=== PATIENT | female | born 1935 | race Caucasian/White ===

== ENCOUNTER 2023-01-22 13:00 | Outpatient (RCR) | payer MEDICARE, OTHER, SELFPAY | END 2023-01-22 14:14 | disposition home or self-care (01) | PROVIDERS: PCP Family Medicine; Visit Provider Family Medicine | DX: M25.561 Pain in right knee (principal); M25.562 Pain in left knee; R26.81 Unsteadiness on feet; M62.81 Muscle weakness (generalized); Z74.09 Other reduced mobility; Z51.89 Encounter for other specified aftercare | CPT/HCPCS: 97110; 97161 ==

== ENCOUNTER 2023-08-09 12:15 | Outpatient (CLI) | payer MEDICARE, OTHER, SELFPAY | END 2023-08-09 12:16 | disposition home or self-care (01) | LOC: WOUND 12:17 | PROVIDERS: PCP Family Medicine; Visit Provider Nurse Practitioner Family | DX: C44.319 Basal cell carcinoma of skin of other parts of face (principal) | CPT/HCPCS: 11042; G0463 ==

== ENCOUNTER 2023-10-15 14:00 | Outpatient (RCR) | payer MEDICARE, OTHER, SELFPAY ==
--- NOTE | 2023-05-09 11:25 | ONC.NURNOTE ---
Addendum entered by Fabiola Siddiqui RN 05/15/23 12:10: [facility] transferred RX for Erivedge to [facility]- due to insurance preferences Original Note: New RX faxed to [facility] Erivedge/visomodegib supporting documentation included patient was called with this information
--- NOTE | 2023-05-09 13:20 | ONC.NURNOTE ---
Patient called office this morning checking with PET scheduling. Talking with clinic nurse, she was unable to get patient in until 06/02/2023, so order was sent to [place]. There was discussion between patient and [place], and this was cancelled. Patient said she was able to change her appointments and would like the appointment for 05/23/2023 in [place] back if possible. She also notes that she is unable to go anywhere outside of [place] or [place] for this scan. [employer]writer was able to get ahold of [place]. Radiology notes that she is on the [facility] schedule for 05/15/2023. This was moved to 05/23/2023 at 0815 in [place] per writers discussion with patient this morning. LMOM for patient with this infomration and information about diet restrictions were sent to patient via mail.
--- NOTE | 2023-05-16 11:36 | ONC.NURNOTE ---
Landon COSTELLO approval through 05/13/24 Copay $38 [facility] ph [phone] fax [phone]
--- NOTE | 2023-05-16 11:48 | ONC.NURNOTE ---
The following information was called to [place] [facility] and copay appt dates 05/29/23- -will get baseline lab first 1015 -then see Dr Culp and review PET results 1100 (VV) -then teaching on Erivedge with this publications writer 1130 publications writer will also email this information to patient-[place] offered her husbands email address at [email or web address] [place] was instructed to have her drug shipped to her at this time
[2023-05-29 10:24] LABS: Basophils Absolute Auto 0.04 K/uL (0.00-0.30); Basophils Percent Auto 0.8 % (0.0-3.0); Eosinophils Absolute Auto 0.19 K/uL (0.00-0.50); Eosinophils Percent Auto 3.8 % (0.0-7.0); Hematocrit 39.2 % (33.0-51.0); Lymphocytes Percent Auto 31.7 % (20-44); Mean Corpuscular HGB Conc 31 gm/dL (32-36); Mean Corpuscular Hemoglobin 27 pg (26-34); Mean Corpuscular Volume 89 fL (80-100); Monocytes Percent Auto 6.7 % (0.0-11.0); Neutrophils Absolute Auto 2.88 K/uL (1.7-7.0); Platelet Count* 281 K/uL (140-440); RDW Coefficient of Variation % 14.1 % (11.5-15.5); Red Blood Count 4.42 m/uL (4.00-5.20); White Blood Count* 5.05 K/uL (4.50-11.00)
[2023-05-29 10:38] LABS: Slide Review Reflex No
[2023-05-29 10:42] LABS: Albumin* 4.3 g/dL (3.3-5.0); Chloride* 101 mmol/L (96-114)
[2023-05-29 10:43] LABS: Potassium* 4.3 mmol/L (3.6-5.1); Sodium* 140 mmol/L (135-149)
[2023-05-29 10:45] LABS: Anion Gap 9 mEq/L (7-15); Bilirubin Total* 0.9 mg/dL (0.1-1.5); Carbon Dioxide* 30 mmol/L (20-32); Creatinine* 0.6 mg/dL (0.5-1.5); Est. Creatinine Clearance* 31.35; Estimated Glomerular Filt Rate 87 ml/min; Total Protein* 7.3 g/dL (6.0-8.3)
[2023-05-29 10:46] LABS: Alanine Aminotransferase* 28 U/L (4-35); Alkaline Phosphatase* 91 U/L (40-150); Aspartate Amino Transferase* 37 U/L (12-35); Blood Urea Nitrogen* 15 mg/dL (7-30); Calcium* 8.3 mg/dL (8.4-10.6); Creatine Kinase* 87 U/L (41-117); Glucose* 159 mg/dL (60-115); Lactate Dehydrogenase* 200 U/L (120-246)
--- NOTE | 2023-05-30 13:27 | ONC.NURNOTE ---
PSDS=1 no social service consult indicated physical concerns memory and dry itchy skin
--- NOTE | 2023-05-30 13:49 | ONC.NURNOTE ---
Teaching on Eviridge with son, patient and spouse reviewed possible side effects-calling with problems- ER if fever over 100.5- reviewed content of the patient treatment binder encouraged to keep a record of loose stools and other symptoms
--- NOTE | 2023-05-30 13:55 | ONC.NURNOTE ---
New start Eviridge follow up call on medication tolerance LM on voice mail to call back
--- NOTE | 2023-06-01 09:04 | ONC.NURNOTE ---
Addendum entered by Alpa Thomas RN 06/01/23 15:23: Pt called back saying she is feeling well and has no concerns at this time. Original Note: Attempted to contact patient to see how she is tolerating her new medication, Vismodegib. LM for patient to call clinic and let us know at her convenience today.
--- NOTE | 2023-06-04 15:22 | ONC.NURNOTE ---
lab orders faxed to [facility] lab for 06/12/23 insurance underwriter sales called and confirmed that orders were received pt has appt for 06/12
--- NOTE | 2023-06-07 14:12 | ONC.NURNOTE ---
Erivedge tolerance follow up: [place] reports increase frequency in stools, but no loose stools- all formed she has ongoing muscle cramps at baseline and has not noted any change- she has exercises from PT for muscle cramps that is helpful not sure that she is anymore fatigued- sleeps 10-12 hrs/night appetite is unchanged denies any questions or concerns regarding her medication lab due next week at [facility]- orders have been faxed over [facility] in 2 weeks for follow up
--- NOTE | 2023-06-15 13:00 | ONC.NURNOTE ---
lab results reviewed and called to [place] as stable medication tolerance as follows experiencing some dry heaves when she over eats- she had this prior to starting erivedge- but thinks it is a little worse taking 7 up with relief reports intermittant constipation and leg aches which she has been managing for many years Alexandria has a history or reflux and is currently taking omeprazole [place] can not determine that any of these issues are new or they could be slightly more aggravated since starting Erivedge
--- NOTE | 2023-07-17 12:39 | ONC.NURNOTE ---
patient was phoned and informed that she is due to additional lab this past week orders faxed to [facility]- patient will call to set up lab appt for
--- NOTE | 2023-07-17 12:41 | ONC.NURNOTE ---
Landon tolerance check in- reports frequent episodes of LE muscle cramping- more than her baseline- 10-12 times/day 2 nights ago [place] reported that she took Tylenol at HS for a headache and has not had a single muscle cramp since taking the Tylenol dose
[2023-08-01 10:33] LABS: Hematocrit 37.3 % (33.0-51.0); Hemoglobin* 11.5 gm/dL (12.0-16.0); Lymphocytes Percent Auto 35.5 % (20-44); Mean Corpuscular HGB Conc 31 gm/dL (32-36); Mean Corpuscular Hemoglobin 26 pg (26-34); Mean Corpuscular Volume 86 fL (80-100); Neutrophils Percent Auto 53.3 % (42.0-72.0); Platelet Count* 237 K/uL (140-440); RDW Coefficient of Variation % 14.5 % (11.5-15.5); Red Blood Count 4.35 m/uL (4.00-5.20)
[2023-08-01 10:34] LABS: Basophils Absolute Auto 0.04 K/uL (0.00-0.30); Basophils Percent Auto 0.8 % (0.0-3.0); Eosinophils Absolute Auto 0.16 K/uL (0.00-0.50); Immature Granulocytes Abs Auto 0.01 K/uL (0.00-0.30); Immature Granulocytes Pct Auto 0.2 %; Lymphocytes Absolute Auto 1.88 K/uL (0.90-2.90); Monocytes Percent Auto 7.2 % (0.0-11.0); Neutrophils Absolute Auto 2.83 K/uL (1.7-7.0)
[2023-08-01 10:35] LABS: Slide Review Reflex No
[2023-08-01 10:44] LABS: Albumin* 4.5 g/dL (3.3-5.0); Chloride* 101 mmol/L (96-114); Sodium* 140 mmol/L (135-149)
[2023-08-01 10:45] LABS: Potassium* 4.2 mmol/L (3.6-5.1)
[2023-08-01 10:47] LABS: Alkaline Phosphatase* 85 U/L (40-150); Anion Gap 7 mEq/L (7-15); Aspartate Amino Transferase* 37 U/L (12-35); Bilirubin Total* 0.7 mg/dL (0.1-1.5); Blood Urea Nitrogen* 21 mg/dL (7-30); Carbon Dioxide* 32 mmol/L (20-32); Creatine Kinase* 120 U/L (41-117); Creatinine* 0.7 mg/dL (0.5-1.5); Est. Creatinine Clearance* 31.35; Estimated Glomerular Filt Rate 84 ml/min; Glucose* 142 mg/dL (60-115); Total Protein* 7.7 g/dL (6.0-8.3)
[2023-08-01 10:48] LABS: Alanine Aminotransferase* 28 U/L (4-35); Calcium* 9.3 mg/dL (8.4-10.6)
[2023-08-08 10:20] LABS: Basophils Absolute Auto 0.04 K/uL (0.00-0.30); Basophils Percent Auto 0.8 % (0.0-3.0); Eosinophils Absolute Auto 0.15 K/uL (0.00-0.50); Eosinophils Percent Auto 2.9 % (0.0-7.0); Hematocrit 37.2 % (33.0-51.0); Hemoglobin* 11.3 gm/dL (12.0-16.0); Lymphocytes Absolute Auto 1.59 K/uL (0.90-2.90); Lymphocytes Percent Auto 31.2 % (20-44); Mean Corpuscular HGB Conc 30 gm/dL (32-36); Mean Corpuscular Hemoglobin 26 pg (26-34); Mean Corpuscular Volume 86 fL (80-100); Monocytes Percent Auto 5.7 % (0.0-11.0); Neutrophils Absolute Auto 3.03 K/uL (1.7-7.0); Neutrophils Percent Auto 59.4 % (42.0-72.0); Platelet Count* 249 K/uL (140-440); RDW Coefficient of Variation % 14.9 % (11.5-15.5); Red Blood Count 4.31 m/uL (4.00-5.20)
[2023-08-08 10:22] LABS: Slide Review Reflex No
[2023-08-08 11:10] LABS: Creatine Kinase* 264 U/L (41-117)
--- NOTE | 2023-08-08 14:29 | ONC.NURNOTE ---
CPK results reviewed by Dr Culp- and called to [place] per Dr Culp- continue to hold Erivedge for another week and recheck CPK next week patient called, states understanding and appts made
[2023-08-15 10:38] LABS: Creatine Kinase* 132 U/L (41-117)
--- NOTE | 2023-08-15 15:47 | ONC.NURNOTE ---
CPK results noted by Dr Culp- orders received [place] called with dose change- resume Erivedge every other day with lab repeat in 1 week patient states understanding and appts made for lab
[2023-08-22 11:04] LABS: Creatine Kinase* 110 U/L (41-117)
--- NOTE | 2023-08-22 11:22 | ONC.NURNOTE ---
Patient reports doing well on QOD dosing of Eviridge muscle cramping has decreased from frequent occurrences throughout the day- to infrequent- not even daily due for Oncology follow up next week with all lab due
[2023-08-29 09:02] LABS: Basophils Absolute Auto 0.03 K/uL (0.00-0.30); Basophils Percent Auto 0.5 % (0.0-3.0); Eosinophils Percent Auto 3.7 % (0.0-7.0); Hemoglobin* 11.1 gm/dL (12.0-16.0); Lymphocytes Absolute Auto 1.66 K/uL (0.90-2.90); Lymphocytes Percent Auto 30.3 % (20-44); Mean Corpuscular HGB Conc 31 gm/dL (32-36); Mean Corpuscular Hemoglobin 26 pg (26-34); Mean Corpuscular Volume 86 fL (80-100); Monocytes Percent Auto 5.5 % (0.0-11.0); Neutrophils Absolute Auto 3.28 K/uL (1.7-7.0); Platelet Count* 258 K/uL (140-440); RDW Coefficient of Variation % 15.1 % (11.5-15.5); White Blood Count* 5.47 K/uL (4.50-11.00)
[2023-08-29 09:04] LABS: Slide Review Reflex No
[2023-08-29 09:20] LABS: Albumin* 4.2 g/dL (3.3-5.0); Chloride* 101 mmol/L (96-114); Potassium* 3.9 mmol/L (3.6-5.1); Sodium* 138 mmol/L (135-149)
[2023-08-29 09:22] LABS: Creatinine* 0.7 mg/dL (0.5-1.5); Est. Creatinine Clearance* 31.35; Estimated Glomerular Filt Rate 84 ml/min
[2023-08-29 09:23] LABS: Alanine Aminotransferase* 20 U/L (4-35); Alkaline Phosphatase* 80 U/L (40-150); Anion Gap 7 mEq/L (7-15); Aspartate Amino Transferase* 32 U/L (12-35); Bilirubin Total* 0.8 mg/dL (0.1-1.5); Blood Urea Nitrogen* 15 mg/dL (7-30); Calcium* 9.2 mg/dL (8.4-10.6); Carbon Dioxide* 30 mmol/L (20-32); Glucose* 196 mg/dL (60-115); Total Protein* 7.3 g/dL (6.0-8.3)
[2023-10-03 10:12] LABS: Basophils Absolute Auto 0.04 K/uL (0.00-0.30); Basophils Percent Auto 0.8 % (0.0-3.0); Eosinophils Percent Auto 3.8 % (0.0-7.0); Hematocrit 37.5 % (33.0-51.0); Hemoglobin* 11.4 gm/dL (12.0-16.0); Lymphocytes Absolute Auto 1.69 K/uL (0.90-2.90); Lymphocytes Percent Auto 31.9 % (20-44); Mean Corpuscular HGB Conc 30 gm/dL (32-36); Mean Corpuscular Hemoglobin 26 pg (26-34); Mean Corpuscular Volume 85 fL (80-100); Monocytes Percent Auto 5.5 % (0.0-11.0); Neutrophils Absolute Auto 3.07 K/uL (1.7-7.0); Platelet Count* 244 K/uL (140-440); RDW Coefficient of Variation % 15.5 % (11.5-15.5); Red Blood Count 4.42 m/uL (4.00-5.20); White Blood Count* 5.29 K/uL (4.50-11.00)
[2023-10-03 10:32] LABS: Slide Review Reflex No
[2023-10-03 10:34] LABS: Albumin* 4.2 g/dL (3.3-5.0); Chloride* 103 mmol/L (96-114); Sodium* 137 mmol/L (135-149)
[2023-10-03 10:35] LABS: Potassium* 3.9 mmol/L (3.6-5.1)
[2023-10-03 10:37] LABS: Alkaline Phosphatase* 81 U/L (40-150); Anion Gap 6 mEq/L (7-15); Aspartate Amino Transferase* 28 U/L (12-35); Bilirubin Total* 0.5 mg/dL (0.1-1.5); Blood Urea Nitrogen* 18 mg/dL (7-30); Carbon Dioxide* 28 mmol/L (20-32); Creatine Kinase* 109 U/L (41-117); Creatinine* 0.7 mg/dL (0.5-1.5); Est. Creatinine Clearance* 31.35; Estimated Glomerular Filt Rate 84 ml/min; Glucose* 187 mg/dL (60-115); Total Protein* 7.3 g/dL (6.0-8.3)
[2023-10-03 10:38] LABS: Alanine Aminotransferase* 20 U/L (4-35); Calcium* 8.6 mg/dL (8.4-10.6)
--- NOTE | 2023-10-04 13:10 | ONC.NURNOTE ---
Lab results stable including CPK, reviewed by Dr Culp and called to [place] reports no concerns with current treatment PET next week with follow up following
== END 2023-11-03 23:59 | disposition home or self-care (01) ==
LOC: CCIC 14:00
PROVIDERS: PCP Family Medicine; Referring Provider Family Medicine; Visit Provider Internal Medicine Hematology & Oncology
DX: C44.319 Basal cell carcinoma of skin of other parts of face (principal)
CPT/HCPCS: 36415; 80053; 82550; 83615; 85025; 99202; 99205; 99212; 99213; 99214; 99215; G0463

== ENCOUNTER 2024-05-21 10:30 | Outpatient (RCR) | payer MEDICARE, OTHER, SELFPAY ==
[2023-11-26 10:36] LABS: Basophils Absolute Auto 0.04 K/uL (0.00-0.30); Basophils Percent Auto 0.9 % (0.0-3.0); Eosinophils Absolute Auto 0.17 K/uL (0.00-0.50); Eosinophils Percent Auto 3.8 % (0.0-7.0); Hematocrit 35.1 % (33.0-51.0); Hemoglobin* 10.9 gm/dL (12.0-16.0); Lymphocytes Absolute Auto 1.36 K/uL (0.90-2.90); Lymphocytes Percent Auto 30.2 % (20-44); Mean Corpuscular HGB Conc 31 gm/dL (32-36); Mean Corpuscular Hemoglobin 26 pg (26-34); Mean Corpuscular Volume 84 fL (80-100); Monocytes Percent Auto 6.9 % (0.0-11.0); Neutrophils Absolute Auto 2.62 K/uL (1.7-7.0); Neutrophils Percent Auto 58.2 % (42.0-72.0); Platelet Count* 246 K/uL (140-440); RDW Coefficient of Variation % 15.4 % (11.5-15.5); Red Blood Count 4.16 m/uL (4.00-5.20)
[2023-11-26 10:54] LABS: Albumin* 4.3 g/dL (3.3-5.0)
[2023-11-26 10:55] LABS: Chloride* 105 mmol/L (96-114); Potassium* 3.8 mmol/L (3.6-5.1); Sodium* 139 mmol/L (135-149)
[2023-11-26 10:57] LABS: Bilirubin Total* 0.7 mg/dL (0.1-1.5); Creatinine* 0.7 mg/dL (0.5-1.5); Estimated Glomerular Filt Rate 84 ml/min
[2023-11-26 10:58] LABS: Alanine Aminotransferase* 23 U/L (4-35); Alkaline Phosphatase* 72 U/L (40-150); Anion Gap 8 mEq/L (7-15); Aspartate Amino Transferase* 37 U/L (12-35); Blood Urea Nitrogen* 18 mg/dL (7-30); Calcium* 8.4 mg/dL (8.4-10.6); Carbon Dioxide* 26 mmol/L (20-32); Glucose* 156 mg/dL (60-115); Total Protein* 7.3 g/dL (6.0-8.3)
[2023-11-26 11:11] LABS: Slide Review Reflex No
[2023-11-26 12:18] LABS: Creatine Kinase* 133 U/L (41-117)
[2023-12-11 10:12] LABS: Basophils Absolute Auto 0.03 K/uL (0.00-0.30); Basophils Percent Auto 0.7 % (0.0-3.0); Eosinophils Absolute Auto 0.16 K/uL (0.00-0.50); Eosinophils Percent Auto 3.5 % (0.0-7.0); Hematocrit 35.8 % (33.0-51.0); Lymphocytes Absolute Auto 1.55 K/uL (0.90-2.90); Lymphocytes Percent Auto 33.6 % (20-44); Mean Corpuscular HGB Conc 31 gm/dL (32-36); Mean Corpuscular Hemoglobin 26 pg (26-34); Mean Corpuscular Volume 84 fL (80-100); Monocytes Percent Auto 7.2 % (0.0-11.0); Neutrophils Absolute Auto 2.54 K/uL (1.7-7.0); Platelet Count* 247 K/uL (140-440); RDW Coefficient of Variation % 15.4 % (11.5-15.5); Red Blood Count 4.27 m/uL (4.00-5.20); White Blood Count* 4.61 K/uL (4.50-11.00)
[2023-12-11 10:14] LABS: Slide Review Reflex No
[2023-12-11 10:35] LABS: Albumin* 4.3 g/dL (3.3-5.0)
[2023-12-11 10:36] LABS: Chloride* 104 mmol/L (96-114); Potassium* 4.4 mmol/L (3.6-5.1); Sodium* 139 mmol/L (135-149)
[2023-12-11 10:38] LABS: Anion Gap 5 mEq/L (7-15); Aspartate Amino Transferase* 34 U/L (12-35); Bilirubin Total* 0.9 mg/dL (0.1-1.5); Carbon Dioxide* 30 mmol/L (20-32); Creatinine* 0.7 mg/dL (0.5-1.5); Estimated Glomerular Filt Rate 84 ml/min; Total Protein* 7.4 g/dL (6.0-8.3)
[2023-12-11 10:39] LABS: Alanine Aminotransferase* 23 U/L (4-35); Alkaline Phosphatase* 77 U/L (40-150); Blood Urea Nitrogen* 19 mg/dL (7-30); Calcium* 8.4 mg/dL (8.4-10.6); Creatine Kinase* 128 U/L (41-117); Glucose* 169 mg/dL (60-115)
[2024-02-20 09:46] LABS: Basophils Percent Auto 0.5 % (0.0-3.0); Eosinophils Percent Auto 3.9 % (0.0-7.0); Hemoglobin* 11.1 gm/dL (12.0-16.0); Lymphocytes Percent Auto 31.3 % (20-44); Mean Corpuscular HGB Conc 30 gm/dL (32-36); Mean Corpuscular Hemoglobin 25 pg (26-34); Mean Corpuscular Volume 83 fL (80-100); Monocytes Percent Auto 7.7 % (0.0-11.0); Neutrophils Percent Auto 56.6 % (42.0-72.0); Platelet Count* 242 K/uL (140-440); RDW Coefficient of Variation % 15.2 % (11.5-15.5); Red Blood Count 4.44 m/uL (4.00-5.20); White Blood Count* 4.31 K/uL (4.50-11.00)
[2024-02-20 09:47] LABS: Slide Review Reflex No
[2024-02-20 09:59] LABS: Albumin* 4.1 g/dL (3.3-5.0); Chloride* 102 mmol/L (96-114); Sodium* 141 mmol/L (135-149)
[2024-02-20 10:01] LABS: Anion Gap 4 mEq/L (7-15); Aspartate Amino Transferase* 36 U/L (12-35); Bilirubin Total* 0.8 mg/dL (0.1-1.5); Carbon Dioxide* 35 mmol/L (20-32); Creatinine* 0.7 mg/dL (0.5-1.5); Estimated Glomerular Filt Rate 84 ml/min
[2024-02-20 10:02] LABS: Alkaline Phosphatase* 87 U/L (40-150); Blood Urea Nitrogen* 16 mg/dL (7-30); Calcium* 8.8 mg/dL (8.4-10.6); Creatine Kinase* 53 U/L (41-117); Glucose* 170 mg/dL (60-115)
[2024-02-20 10:17] LABS: Alanine Aminotransferase* 24 U/L (4-35)
--- NOTE | 2024-04-10 13:21 | ONC.NURNOTE ---
Addendum entered by Zelda Garg RN 04/14/24 14:05: The following recommendations were given to patient via voicemail that was requested by patient last week. 1. See radiation. 2. Can try aquaphor to the area in the meantime. Original Note: Patient called and is wondering if there is a suggestion of a salve for her lesions on her forehead. 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 She also notes that she has intermittent pain at these sites, which she was told was from nerve exposure and that she is hesitant to meet with radiation oncology as recommended. She was told that it would just be a meeting, and this could educate her as far as whether this may improve her pain as well. She will continue to think on this, she has a lot of things going on and may wait another week.
--- NOTE | 2024-05-22 14:14 | ONC.NURNOTE ---
Starts radiation on 05/26- [address] Rodriguez on 06/03/24- for post treatment follow up patient was due to be seen this week by Med Onc will wait for recommendation from Dr Rodriguez after she completes her course of radiation
--- NOTE | 2024-07-31 14:58 | ONC.NURNOTE ---
Tar Heater Operator called [place] to set up return visit with Dr Robbi Ibrahim states that the site of her basal cell has almost completely healed since completing radiation therapy and she does not see any reason to come back in to be seen [place] notes that she feels well and is staying active database report writer did recommend that she follow up with a provider at regular intervals for evaluation [place] states she will call us if anything changes or if she has any concerns database report writer will let Dr Culp know no follow up has been scheduled
== END 2024-05-24 23:59 | disposition home or self-care (01) ==
LOC: CCIC 10:30
PROVIDERS: PCP Family Medicine; Referring Provider Family Medicine; Visit Provider Internal Medicine Hematology & Oncology
DX: C44.319 Basal cell carcinoma of skin of other parts of face (principal)
CPT/HCPCS: 36415; 80053; 82550; 85025; 99213; 99214; G0463

== ENCOUNTER 2025-03-05 16:23 | Outpatient (CLI) | payer MEDICARE, OTHER, SELFPAY ==
--- NOTE | 2025-03-05 16:30 | CRLHL7_ITS ---
For Patients: As a result of the 21st Century Cures Act, medical imaging exams and procedure reports are released immediately into your electronic medical record. You may view this report before your referring provider. If you have questions, please contact your health care provider. 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 Status chemotherapy and radiation therapy 2 scalp lesions, with positive biopsy 01/2025. Restaging. TECHNIQUE: Radiopharmaceutical: 18F-fluorodeoxyglucose (18F-FDG) Dose: 12.42 MilliCurie. Blood glucose: 124 mg/dL. Image acquisition: At approximately 60 minutes following IV tracer administration via a left antecubital vein, positron emission tomography was performed from the vertex of the skull to the feet. Non-contrast low-dose helical CT imaging was performed over the same range without breath-hold for attenuation correction of PET images and anatomic correlation; it is neither sufficient, nor should it be substituted for diagnostic purposes. COMPARISON: None FINDINGS: Mediastinal blood pool FDG uptake: SUVMax 3.6 (Image 128) Liver background parenchymal FDG uptake: SUVMax 3.7 (Image 174) PET Findings: Intracranial brain lesions are inadequately characterized and staged by FDG PET-CT. If there is clinical concern for intracranial metastatic disease, correlate with MRI brain with and without gadolinium contrast for assessment and characterization of intracranial lesions. Within these limitations, no gross abnormal focal increased FDG uptake intracranially. *Moderately to intensely FDG avid 1.6 cm right paramedian frontal scalp cutaneous lesion SUVMax 8.7 (301:46, 202:43) *Moderately FDG avid 1.1 cm left frontal scalp cutaneous lesion SUVMax 6.8 (301:39, 202:36) No abnormal FDG avid lymphadenopathy. No abnormal FDG uptake in the visualized skeleton. Tracer uptake elsewhere is physiologic. Non-PET findings: Moderate cerebral volume loss. Partial opacification of right maxillary sinus. Sequela of granulomatous disease. Coronary artery calcifications. Atherosclerotic calcifications of the thoracic and abdominal aorta. Colonic diverticulosis. Left knee arthroplasty. Multilevel degenerative changes in the spine. IMPRESSION: 1. 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 2. Moderately FDG avid 1.1 cm left frontal scalp cutaneous lesion representing biopsy-proven basal cell carcinoma. 3. No evidence of FDG avid brian or distant metastatic disease. Dictated by Austin Mathew MD @ 03/06/2025 11:30:51 PM (Electronically Signed)
== END 2025-03-05 16:24 | disposition home or self-care (01) ==
PROVIDERS: PCP Family Medicine; Visit Provider Internal Medicine Hematology & Oncology
DX: C44.49 Other specified malignant neoplasm of skin of scalp and neck (principal)
CPT/HCPCS: 78816; A9552

== ENCOUNTER 2025-06-25 13:36 | Outpatient (CLI) | payer MEDICARE, OTHER, SELFPAY ==
--- NOTE | 2025-06-25 14:00 | CRLHL7_ITS ---
For Patients: As a result of the 21st Century Cures Act, medical imaging exams and procedure reports are released immediately into your electronic medical record. You may view this report before your referring provider. If you have questions, please contact your health care provider. 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 Status chemotherapy and radiation therapy 2 scalp lesions, with positive biopsy 01/2025. Restaging. TECHNIQUE: Radiopharmaceutical: 18F-fluorodeoxyglucose (18F-FDG) Dose: 13.48 MilliCurie. Blood glucose: 103 mg/dL. Image acquisition: At approximately 60 minutes following IV tracer administration via a left antecubital vein, positron emission tomography was performed from the vertex of the skull to the feet. Non-contrast low-dose helical CT imaging was performed over the same range without breath-hold for attenuation correction of PET images and anatomic correlation; it is neither sufficient, nor should it be substituted for diagnostic purposes. COMPARISON: FDG PET CT 03/05/2025 FINDINGS: Mediastinal blood pool FDG uptake: SUVMax 2.9 (301:132, 202: 131). Liver background parenchymal FDG uptake: SUVmax 3.5, (301:173, 202: 172). PET Findings: Intracranial brain lesions are inadequately characterized and staged by FDG PET-CT. If there is clinical concern for intracranial metastatic disease, correlate with MRI brain with and without gadolinium contrast for assessment and characterization of intracranial lesions. Within these limitations, no gross abnormal focal increased FDG uptake intracranially. Decreased moderately FDG lesion in the right frontal scalp, without definite CT correlate SUVmax 4.4, (301:31, 202: 30), previously visualized as a discrete 1.6 cm lesion with SUVmax 8.7. Substantially decreased lesion in the left frontal scalp, now without definite CT correlate and with residual faint FDG uptake at this site SUVmax 2.2, (301:25, 202: 24) previously visualized as a discrete 1.1 cm lesion with SUVMax 6.8. No abnormal FDG avid lymphadenopathy. No abnormal FDG uptake in the visualized skeleton. New diffuse moderate FDG uptake throughout the decompressed stomach. This is nonspecific with differential considerations including gastritis versus physiologic FDG uptake. If clinically indicated, correlate with endoscopy. New intense diffuse FDG uptake in the decompressed mid to distal sigmoid colon, without evidence of pericolonic stranding or definite evidence of colonic wall thickening. This is nonspecific, with differential considerations including physiologic uptake versus early colitis. Tracer uptake elsewhere is physiologic. Non-PET findings: Bilateral lens replacements. Moderate cerebral volume loss. Partial opacification of right maxillary sinus. Sequela of granulomatous disease. Coronary artery calcifications. Atherosclerotic calcifications of the thoracic and abdominal aorta. Colonic diverticulosis. Left knee arthroplasty. Multilevel degenerative changes in the spine. IMPRESSION: Since 03/05/2025 FDG PET-CT: 1. Decreased moderately FDG lesion in the right frontal scalp and substantially decreased faintly FDG avid lesion in the left frontal scalp, both without CT correlate on this study. Findings are compatible with posttreatment change. 2. No evidence of FDG avid brian or distant metastatic disease. 3. New diffuse moderate FDG uptake throughout the decompressed stomach. This is nonspecific with differential considerations including gastritis versus physiologic FDG uptake. If clinically indicated, correlate with endoscopy. 4. New intense diffuse FDG uptake in the decompressed mid to distal sigmoid colon, without evidence of pericolonic stranding or definite evidence of colonic wall thickening. This is nonspecific, with differential considerations including physiologic uptake versus early colitis. Correlate with patient`s symptoms. Dictated by Austin Mathew MD @ 06/29/2025 4:33:10 PM (Electronically Signed)
== END 2025-06-25 13:37 | disposition home or self-care (01) ==
LOC: RAD 13:36
PROVIDERS: PCP Family Medicine; Visit Provider Internal Medicine Hematology & Oncology
DX: C44.49 Other specified malignant neoplasm of skin of scalp and neck (principal); C44.41 Basal cell carcinoma of skin of scalp and neck; Z85.828 Personal history of other malignant neoplasm of skin; K52.9 Noninfective gastroenteritis and colitis, unspecified; R13.10 Dysphagia, unspecified
CPT/HCPCS: 78816; A9552